=== PATIENT | male | born 1960 | race African-American/Black ===

== ENCOUNTER 2020-07-28 06:51 | Inpatient (IN) ==
[2020-07-23 11:22] LABS: Basophils # 0.1 10*3/uL (0.0-0.2); Basophils % 1.1 % (0.0-0.8); Eosinophils % 0.7 % (0.00-10.9); Hematocrit 37.1 VOL% (42.0-52.0); Hemoglobin 13.1 GM/DL (14.0-18.0); Immature Granulocytes % 0.5 %; Immature Granulocytes Absolute 0.03 #; Lymphocytes # 1.5 10*3/uL (1.4-4.0); Lymphocytes % 27.3 % (21.2-54.2); Mean Corpuscular HGB Conc 35.3 GM/DL (32-36); Mean Corpuscular Volume 94.2 FL (87-102); Mean Platelet Volume 11.6 FL (9.6-12.0); Monocytes % 12.1 % (1.7-12.7); Neutrophils % 58.3 % (38.7-73.9); Platelet Count 219 T/CUMM (130-400); Red Blood Count 3.94 MC/CUMM (3.8-5.5); Red Cell Distribution Width 13.3 % (9.3-17.3); White Blood Count 5.6 T/CUMM (4-12)
[2020-07-23 11:37] LABS: PT Patient Result 10.6 SECS (9.8-11.9)
[2020-07-23 11:53] LABS: Albumin 3.5 G/DL (3.4-5.0); Bilirubin,Total 2.1 MG/DL (0.2-1.0); Calcium 8.8 MG/DL (8.5-10.1); Osmolality,Calculated 276.8 MOS/KG (273-304); Total Protein 7.3 G/DL (6.4-8.3)
[~2020-07-28 06:51] MED LIST: LACTATED RINGERS 1,000 ML IV SCH; ceFAZolin 1,000 MG in SYRINGE 1 EACH IV ONE
[2020-07-28] MEDS ORDERED: BUPIVACAINE MPF 0.25% 30 ML VIAL ONE (08:20)
[2020-07-28] MEDS ORDERED: VANCOMYCIN 500 MG VIAL ONE (08:21)
[2020-07-28] MEDS ORDERED: LIDOCAINE 1%/EPI INJ 20 ML VIAL ONE (08:21)
[2020-07-28] MEDS ORDERED: NALOXONE 0.4 MG/ML VIAL IV PRN ×2 (09:21→12:36)
[2020-07-28] MEDS ORDERED: ONDANSETRON 4 MG/2 ML VIAL IV ONE (09:21)
[2020-07-28] MEDS ORDERED: ePHEDrine 50 MG/ML VIAL IV PRN (09:21)
[2020-07-28] MEDS ORDERED: PROMETHAZINE 25 MG/1 ML VIAL IM ONE (09:21)
[2020-07-28] MEDS ORDERED: hydrOXYzine HCL 25 MG/1 ML VIAL IM PRN (09:21)
[2020-07-28] MEDS ORDERED: diphenhydrAMINE 50 MG/1 ML VIAL IV PRN ×2 (09:21)
[2020-07-28] MEDS ORDERED: LACTATED RINGERS 1,000 ML IV SCH (09:30)
[2020-07-28] MEDS ORDERED: fentaNYL 2 MCG/ROPIV 0.2% EPID 100 ML EPIDURAL SCH (09:30)
[2020-07-28] MEDS ORDERED: SUGAMMADEX 200 MG/2 ML VIAL IV ONE (12:07)
[2020-07-28] MEDS ORDERED: KETOROLAC 10 MG TABLET PO PRN (12:36)
[2020-07-28] MEDS ORDERED: ONDANSETRON 4 MG/2 ML VIAL IV PRN (12:36)
[2020-07-28] MEDS ORDERED: PHENYLEPHRINE DRIP 40 MG/250 ML PREMIX IV ONE ×2 (12:50→16:15)
[2020-07-28] MEDS ORDERED: EPINEPHrine 1 MG/10 ML SYRINGE IV ONE (12:52)
[2020-07-28] MEDS ORDERED: ALBUMIN 5% 12.5 GM/250 ML VIAL IV ONE (13:00)
[2020-07-28] MEDS ORDERED: ALBUMIN 5% 12.5 GM in PREMIX 1 EACH IV ONE (13:00)
[2020-07-28 13:09] LABS: Hematocrit 25.9 VOL% (42.0-52.0)
[2020-07-28] MEDS ORDERED: propofoL 200 MG/20 ML VIAL IV ONE (13:24)
[2020-07-28] MEDS ORDERED: fentaNYL 100 MCG/2 ML VIAL ONE (13:25)
[2020-07-28] MEDS ORDERED: LIDOCAINE 2% 5 ML VIAL ONE (13:25)
[2020-07-28] MEDS ORDERED: MIDAZOLAM 2 MG/2 ML VIAL ONE (13:25)
[2020-07-28] MEDS ORDERED: ONDANSETRON 4 MG/2 ML VIAL ONE (13:25)
[2020-07-28] MEDS ORDERED: KETOROLAC 30 MG/1 ML VIAL ONE (13:25)
[2020-07-28] MEDS ORDERED: SEVOFLURANE 1 UNIT/15 MINUTE INH ONE (13:25)
[2020-07-28] MEDS ORDERED: DEXAMETHASONE 4 MG/1 ML VIAL ONE (13:25)
[2020-07-28] MEDS ORDERED: ROCURONIUM 100 MG/10 ML VIAL IV ONE (13:26)
[2020-07-28] MEDS ORDERED: LACTATED RINGERS 1,000 ML IV ONE (13:26)
[2020-07-28] MEDS ORDERED: GLYCOPYRROLATE 0.4 MG/2 ML VIAL ONE (13:26)
[2020-07-28] MEDS ORDERED: PHENYLEPHRINE 1 MG/10 ML SYRINGE IV ONE (13:27)
[2020-07-28] MEDS ORDERED: SODIUM CHLORIDE 0.9% 1,000 ML IV ONE (13:27)
[2020-07-28] MEDS ORDERED: NEOSTIGMINE 10 MG/10 ML VIAL ONE (13:27)
[2020-07-28] MEDS ORDERED: SODIUM CHLORIDE 0.9% 1,000 ML IV PRN (14:20)
[2020-07-28] MEDS: PHENYLEPHRINE DRIP 40 MG/250 ML PREMIX IV PRN ×3 (14:28→21:09)
[2020-07-28] MEDS: LACTATED RINGERS 1,000 ML IV SCH ×2 (14:35→23:16)
[2020-07-28] MEDS: ALBUTEROL/IPRATROPIUM 3 ML NEB RESP TX SCH ×2 (15:08→19:20)
[2020-07-28 15:31] LABS: Bilirubin,Urine Negative (Negative); Blood, Urine Negative (Negative); Glucose,Urine (UA) Negative (Negative); Hyaline Casts,Urine 5 /LPF (0-3); Ketones,Urine Negative (Negative); Mucus,Urine Occasional /LPF (Occasional); Nitrite,Urine Negative (Negative); Protein,Urine 30 MG/DL; Squamous Epithelial Cell,Urine Occasional /HPF (0-10); Urine Appearance CLEAR (Clear); Urine Color Yellow (Yellow); Urine Specific Gravity 1.017 (1.001-1.035); Urine Urobilinogen < 2.0 EU/DL (0.2-1.0)
[2020-07-28] MEDS ORDERED: FUROSEMIDE 20 MG/2 ML VIAL IV ONE (15:46)
[2020-07-28] MEDS ORDERED: PHENYLEPHRINE 50 MG/5 ML VIAL IV ONE (16:29)
[2020-07-28] MEDS: HYDROmorphone PCA 30 MG/30 ML SYRINGE IV SCH (17:12)
[2020-07-28 20:33] LABS: Hematocrit 29.1 VOL% (42.0-52.0); Hemoglobin 9.9 GM/DL (14.0-18.0)
[2020-07-28] MEDS: POTASSIUM CHLORIDE RIDER 10 MEQ in PREMIX 1 EACH IV PRN (23:33)
[2020-07-29] MEDS: PHENYLEPHRINE DRIP 40 MG/250 ML PREMIX IV PRN ×5 (00:28→14:49)
[2020-07-29] MEDS: POTASSIUM CHLORIDE RIDER 10 MEQ in PREMIX 1 EACH IV PRN ×2 (00:29→02:26)
[2020-07-29] MEDS: ALBUTEROL/IPRATROPIUM 3 ML NEB RESP TX SCH ×4 (01:00→19:27)
[2020-07-29 03:54] LABS: Basophils % 0.1 % (0.0-0.8); Immature Granulocytes % 0.8 %; Immature Granulocytes Absolute 0.15 #; Lymphocytes # 1.9 10*3/uL (1.4-4.0); Lymphocytes % 10.5 % (21.2-54.2); Mean Corpuscular HGB Conc 33.3 GM/DL (32-36); Mean Corpuscular Volume 97.4 FL (87-102); Mean Platelet Volume 11.7 FL (9.6-12.0); Monocytes % 8.6 % (1.7-12.7); NRBC # 0.05 10*3/uL; Platelet Count 130 T/CUMM (130-400); Red Blood Count 3.08 MC/CUMM (3.8-5.5); Red Cell Distribution Width 15.3 % (9.3-17.3); White Blood Count 18.4 T/CUMM (4-12)
[2020-07-29 04:12] LABS: Calcium 6.9 MG/DL (8.5-10.1)
[2020-07-29 04:30] LABS: Band Neutrophils 3 % (0-10); Hypochromasia Slight; Lymphocytes 7 % (20-55); Nucleated Red Blood Cells 1 (0-5); Platelet Estimate Normal; Segmented Neutrophils 88 % (50-85); Total Cells Counted 100
[2020-07-29] MEDS: LACTATED RINGERS 1,000 ML IV SCH ×3 (07:30→22:11)
[2020-07-29] MEDS: POTASSIUM CHLORIDE 10 MEQ TABLET PO SCH (08:54)
[2020-07-29] MEDS: PANTOPRAZOLE 40 MG TABLET PO SCH (08:54)
[2020-07-29] MEDS ORDERED: NON-FORMULARY MEDICATION (Alendronate [Fosamax] 70 mg Tablet) PO SCH (09:00)
[2020-07-29] MEDS ORDERED: ENOXAPARIN 40 MG/0.4 ML SYRINGE SUBCUT SCH (09:00)
[2020-07-29] MEDS: MAGNESIUM SULF RIDER 2 GM in PREMIX 1 EACH IV PRN ×2 (12:35→14:35)
[2020-07-29] MEDS: HYDROmorphone PCA 30 MG/30 ML SYRINGE IV SCH (12:35)
[2020-07-29] MEDS ORDERED: SOTALOL 80 MG TABLET PO SCH (13:30)
[2020-07-29] MEDS: ASPIRIN EC 81 MG TABLET PO SCH (14:31)
[2020-07-29] MEDS: SOTALOL 80 MG TABLET PO SCH (14:31)
[2020-07-30] MEDS: ALBUTEROL/IPRATROPIUM 3 ML NEB RESP TX SCH ×4 (00:20→19:40)
[2020-07-30 04:52] LABS: Basophils % 0.2 % (0.0-0.8); Hematocrit 22.9 VOL% (42.0-52.0); Immature Granulocytes % 0.6 %; Immature Granulocytes Absolute 0.08 #; Lymphocytes # 1.3 10*3/uL (1.4-4.0); Lymphocytes % 10.2 % (21.2-54.2); Mean Corpuscular HGB Conc 34.9 GM/DL (32-36); Mean Corpuscular Volume 94.6 FL (87-102); Mean Platelet Volume 12.6 FL (9.6-12.0); Monocytes % 8.1 % (1.7-12.7); NRBC # 0.21 10*3/uL; Neutrophils % 80.9 % (38.7-73.9); Platelet Count 106 T/CUMM (130-400); Red Blood Count 2.42 MC/CUMM (3.8-5.5); White Blood Count 12.8 T/CUMM (4-12)
[2020-07-30 05:14] LABS: Calcium 6.9 MG/DL (8.5-10.1); Osmolality,Calculated 282.7 MOS/KG (273-304)
[2020-07-30 05:19] LABS: Band Neutrophils 4 % (0-10); Hypochromasia 1+; Lymphocytes 9 % (20-55); Microcytosis 1+; Nucleated Red Blood Cells 3 (0-5); Platelet Estimate Decreased; Segmented Neutrophils 76 % (50-85); Total Cells Counted 100
[2020-07-30 05:25] LABS: Albumin 2.4 G/DL (3.4-5.0); Bilirubin,Direct 0.31 MG/DL (0.0-0.20); Bilirubin,Indirect 0.6 MG/DL (0.0-1.0); Bilirubin,Total 0.9 MG/DL (0.2-1.0); Total Protein 4.7 G/DL (6.4-8.3)
[2020-07-30] MEDS: LACTATED RINGERS 1,000 ML IV SCH ×2 (06:00→13:03)
[2020-07-30] MEDS: PANTOPRAZOLE 40 MG TABLET PO SCH (10:05)
[2020-07-30] MEDS: POTASSIUM CHLORIDE 10 MEQ TABLET PO SCH (10:05)
[2020-07-30] MEDS: ASPIRIN EC 81 MG TABLET PO SCH (10:05)
[2020-07-30] MEDS: SOTALOL 80 MG TABLET PO SCH (11:41)
[2020-07-30] MEDS ORDERED: SODIUM CHLORIDE 0.9% 1,000 ML IV PRN (12:00)
[2020-07-30 13:30] LABS: Hepatitis B Surface Ag Quant < 0.10 Index; Hepatitis B Surface Ag Result Negative (Negative); Hepatitis C Virus Ab Quant < 0.02 Index; Hepatitis C Virus Ab Result Negative (Negative)
[2020-07-30] MEDS: HYDROmorphone PCA 30 MG/30 ML SYRINGE IV SCH (13:51)
[2020-07-30] MEDS: METOPROLOL SUCCINATE XL 50 MG TABLET PO SCH (13:51)
[2020-07-31] MEDS: ALBUTEROL/IPRATROPIUM 3 ML NEB RESP TX SCH ×4 (01:47→20:28)
[2020-07-31] MEDS: LACTATED RINGERS 1,000 ML IV SCH (02:00)
[2020-07-31 04:23] LABS: Basophils % 0.1 % (0.0-0.8); Eosinophils % 0.1 % (0.00-10.9); Hemoglobin 9.2 GM/DL (14.0-18.0); Immature Granulocytes % 1.1 %; Immature Granulocytes Absolute 0.11 #; Lymphocytes # 0.7 10*3/uL (1.4-4.0); Lymphocytes % 7.6 % (21.2-54.2); Mean Corpuscular HGB Conc 34.1 GM/DL (32-36); Mean Corpuscular Volume 92.5 FL (87-102); Mean Platelet Volume 12.2 FL (9.6-12.0); Monocytes % 9.7 % (1.7-12.7); NRBC # 0.29 10*3/uL; Neutrophils % 81.4 % (38.7-73.9); Platelet Count 97 T/CUMM (130-400); Red Blood Count 2.92 MC/CUMM (3.8-5.5); Red Cell Distribution Width 14.5 % (9.3-17.3); White Blood Count 9.8 T/CUMM (4-12)
[2020-07-31 04:55] LABS: Eosinophils 1 % (0-10); Lymphocytes 9 % (20-55); Nucleated Red Blood Cells 4 (0-5); Platelet Estimate Decreased; Segmented Neutrophils 88 % (50-85); Total Cells Counted 100
[2020-07-31 04:56] LABS: Hypochromasia Slight
[2020-07-31 04:58] LABS: Calcium 7.2 MG/DL (8.5-10.1)
[2020-07-31 09:37] LABS: Albumin 2.4 G/DL (3.4-5.0); Bilirubin,Direct 0.41 MG/DL (0.0-0.20); Bilirubin,Indirect 0.5 MG/DL (0.0-1.0); Bilirubin,Total 0.9 MG/DL (0.2-1.0); Total Protein 5.6 G/DL (6.4-8.3)
[2020-07-31] MEDS ORDERED: oxyCODONE/ACETAMINOPHEN 5-325 MG TABLET PO PRN ×2 (09:55)
[2020-07-31] MEDS: METOPROLOL SUCCINATE XL 50 MG TABLET PO SCH (10:05)
[2020-07-31] MEDS: ASPIRIN EC 81 MG TABLET PO SCH (10:05)
[2020-07-31] MEDS: POTASSIUM CHLORIDE 10 MEQ TABLET PO SCH (10:05)
[2020-07-31] MEDS: PANTOPRAZOLE 40 MG TABLET PO SCH (10:05)
[2020-07-31] MEDS ORDERED: METOCLOPRAMIDE 10 MG/2 ML VIAL IV PRN (22:03)
[2020-08-01] MEDS: ALBUTEROL/IPRATROPIUM 3 ML NEB RESP TX SCH ×3 (01:28→13:22)
[2020-08-01 05:43] LABS: Albumin 2.3 G/DL (3.4-5.0); Bilirubin,Direct 0.51 MG/DL (0.0-0.20); Bilirubin,Indirect 0.5 MG/DL (0.0-1.0); Total Protein 5.6 G/DL (6.4-8.3)
[2020-08-01] MEDS: METOCLOPRAMIDE 10 MG/2 ML VIAL IV SCH ×2 (05:51→11:10)
[2020-08-01] MEDS: PANTOPRAZOLE 40 MG TABLET PO SCH (08:41)
[2020-08-01] MEDS: POTASSIUM CHLORIDE 10 MEQ TABLET PO SCH (08:41)
[2020-08-01] MEDS: METOPROLOL SUCCINATE XL 50 MG TABLET PO SCH (08:41)
[2020-08-01] MEDS: ASPIRIN EC 81 MG TABLET PO SCH (08:41)
[2020-08-01 12:18] VITALS: BP 123/77
== END 2020-08-01 15:22 | disposition home or self-care (01) | DRG 163 ==
LOC: N.OR 06:51 → N.SDSINP 06:54 → EDSTATUS 09:15 → N.SDSINP 12:36 → N.ICU 14:35 → N.TELEN 07-31 16:38
PROVIDERS: ADMIT Surgery; ATTEND Surgery